=== PATIENT | male | born 2000 ===

== ENCOUNTER 2025-02-12 00:15 | Emergency (ER) | payer MEDICAID, OTHER, SELFPAY ==
--- NOTE | ~2025-02-12 | XR_ITS ---
CLINICAL HISTORY: dyspnea on exertion 2 view chest x-ray Comparison: None provided Findings: The lungs are clear. Heart size is normal. No acute fracture. IMPRESSION: 1. No acute findings. This document has been electronically signed by: Elo Mendiola MD on 02/12/2025 01:46:25
--- NOTE | ~2025-02-12 | XR_ITS ---
CLINICAL HISTORY: low mid back pain 3 views lumbar spine Comparison: None provided Findings: This examination is mildly limited by bowel-gas. No lumbar spondylolisthesis identified. No acute fractures or dislocation. No significant degenerative endplate changes are visualized at the lumbar spine. IMPRESSION: 1. No acute fracture or dislocation injury identified at the lumbar spine. This document has been electronically signed by: Frandy Zelaya MD on 02/12/2025 03:08:46
[2025-02-12 00:19] VITALS: BP 126/84; PULSE 69; RESP 18; TEMP 36.6; O2SAT 100; BMI 21.6
--- NOTE | 2025-02-12 00:22 | ECG_ITS ---
Test Reason : DYSPNEA Blood Pressure : */* mmHG Vent. Rate : 68 BPM Atrial Rate : 68 BPM P-R Int : 162 ms QRS Dur : 98 ms QT Int : 422 ms P-R-T Axes : 56 72 37 degrees QTcB Int : 448 ms Normal sinus rhythm Incomplete right bundle branch block Borderline ECG No previous ECGs available Referred By: Generic ED Physician Electronically Signed By: Fermin Kendrick
[2025-02-12 00:35] VITALS: BP 141/88; PULSE 63; RESP 22; TEMP 36.9; O2SAT 100
[2025-02-12 00:36] LABS: MANUAL DIFF FLAG NO
[2025-02-12 00:37] LABS: Hematocrit 40.8 % (42.0-52.0); Hemoglobin 14.0 g/dl (14.0-18.0); Imm Gran Abs Auto 0.02 X10*3/uL (0.00-0.03); Imm Gran Pct Auto 0.3 % (0.0-0.4); Lymphocytes Absolute Auto 3.1 X10*3/uL (1.2-4.9); Mean Corpuscular HGB Conc 34.3 g/dl (31.0-36.0); Mean Corpuscular Hemoglobin 29.9 pg (27.0-33.0); Mean Corpuscular Volume 87.2 fL (80.0-98.0); NRBC Abs Auto 0.000 X10*3/uL (0.0-0.012); NRBC Pct Auto 0.0 /100WBC (0.0-0.2); Platelet Count 268 X10*3/uL (160-400); Red Blood Count 4.68 X10*6/uL (4.60-5.80); White Blood Count 7.1 X10*3/uL (4.8-10.8)
[2025-02-12 00:56] LABS: Alanine Aminotransferase 24 U/L (0-40); Albumin Level 4.8 g/dL (3.5-5.0); Alkaline Phosphatase 81 U/L (39-117); Anion Gap 12 (12-20); Aspartate Amino Transferase 26 U/L (5-37); Blood Urea Nitrogen 12 mg/dL (9-16); Calcium 9.3 mg/dL (8.4-10.2); Carbon Dioxide 25 mmol/L (22-29); Chloride 108 mmol/L (96-108); Creatinine Clr Calc Pharmacy 98.2; Estimated Glomerular Filt Rate > 60; Potassium 3.5 mmol/L (3.3-5.1); Sodium 141 mmol/L (135-145); Total Protein 7.9 g/dL (6.5-8.0)
--- NOTE | 2025-02-12 00:57 | PC.NURSE ---
Pt with radiology Plan of care ongoing.
--- NOTE | 2025-02-12 01:18 | ED_ITS ---
HPI - General Adult General Chief complaint: Dyspnea Stated complaint: cant breath Time Seen by Provider: 02/12/25 00:34 History of Present Illness ED Provider: Ezio CLARKE narrative: The patient is a 25-year-old male who denies any significant past medical history. He is a nonsmoker. He is on no medications. He is Ethiopian-speaking only. He was interviewed with a Ethiopian project management specialist. The patient came to the emergency room because he feels very short of breath. He says that he feels that he can not take a deep breath. He says that if he tries to take a deep breath he feels discomfort in his back that stops him from taking a deep breath and he therefore feel short of breath. He has not had any significant coughing. No fever, sweats, chills. He does not have a history of asthma. He denies having had any injury. He denies any pain or swelling in his legs. He denies any abdominal pain, nausea, vomiting. He denies any sore throat pain in his neck. 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 When I 1st asked him if he thought he might have hurt his back doing heavy lifting he said no but later he admitted that that might have happened. Related Data Previous Rx's ?Medication ?Instructions ?Recorded acetaminophen 500 mg capsule 1,000 mg (2 x 500 mg) PO Q8H PRN 02/12/25 fever or pain #14 caps cyclobenzaprine 10 mg tablet 10 mg PO TID PRN muscle s pasm #14 02/12/25 tabs ibuprofen 400 mg tablet 400 mg PO Q6H PRN pain #14 t abs 02/12/25 Allergies Allergy/AdvReac Type Severity Reaction Status Date / Time No Known Allergies Allergy Verified 02/12/25 00:21 Review of Systems 2 Review of Systems: Yes all other systems are reviewed and are negative [facility] Social History Social History Smoked in Last 30 Days: No Use of substances other than those prescribed or required for medical reasons: No Advance Directives: No Advance Directives Information Provided: No Do you have a plan to hurt others: No Plan Physical Exam ED Vital Signs: Vital Signs - 24 hr 02/12/25 00:19 02/12/25 00:35 02/12/25 03:20 Temperature 97.8 F 98.4 F 98.0 F Pulse Rate 69 63 56 Respiratory Rate 18 22 H 18 Blood Pressure 126/84 141/88 H 121/71 Pulse Oximetry 100 100 98 Oxygen Delivery Method Room Air Room Air Room Air 02/12/25 03:20 Temperature 98.0 F Pulse Rate 56 Respiratory Rate 18 Blood Pressure 121/71 Pulse Oximetry 98 Oxygen Delivery Method Room Air BMI result Body Mass Index 21.6 Const Other: The patient is a 25-year-old male who looks as though he is ordinarily healthy but he seems uncomfortable and is sitting up very straight as if he is having difficulty breathing. HENMT Other: Posterior pharynx is unremarkable. Mucous membranes are moist. No trismus. Face is unremarkable. Eyes Other: Pupils are round equal, conjunctivae are clear, extraocular movements intact Neck Other: No neck swelling, no neck tenderness, good range of motion of the neck, no adenopathy. Chest Other: No subcutaneous emphysema. No chest wall tenderness. Resp Other: The patient seems to be taking very shallow breaths fairly rapidly. I do not hear scar wheezing or crackles but the breaths that he seems to be taking are so small it is hard to evaluate them.. Cardio Rate: regular rate Rhythm: regular rhythm Heart sounds: S1 normal heart sound present and S2 normal heart sound present GI Other: Abdomen is soft and nontender Back/Spine/Pelvis Other: There is a very subtle area of slight discoloration to the skin in the middle of the back at the thoracolumbar junction region. There may be some tenderness in his area. Skin Other: There may be a patch of some very faint erythema in the mid back at a pproximately the thoracolumbar junction. This is a equivocal finding however. Neuro Other: The patient is awake and alert. He seems to have a very anxious demeanor and seems uncomfortable and tachypneic. Otherwise his mental status seems clear. Nerves are intact. He moves his extremities normally and is gait is steady. Extrem Other: There is no calf swelling or tenderness. No asymmetry. No peripheral edema. Medications Administered Discontinued Medications Generic Name Dose Route Start Last Admin Trade Name Freq PRN Reason Stop Dose Admin Cyclobenzaprine HCl 10 mg 02/12/25 02:49 02/12/25 02:59 Cyclobenzaprine Hcl 10 Mg Tablet PO 02/12/25 02:50 10 mg ONCE ONE Administration Acetaminophen 1,000 mg in 100 mls @ 400 mls/hr 02/12/25 01:40 02/12/25 02:05 Ofirmev IV 02/12/25 01:54 Infused ONCE ONE Infusion Ketorolac Tromethamine 15 mg 02/12/25 01:10 02/12/25 01:24 Ketorolac Tromethamine 15 Mg/Ml Vial IVPUSH 02/12/25 01:11 15 mg ONCE ONE Administration Medical Decision Making Medical Decision Making [facility] Narrative: The patient is an ordinarily healthy 25-year-old who presented to the emergency room with mid lower back pain which was making breathing painful. Therefore the patient at 1st looked short of breath. Breath sounds were hard to evaluate because the patient was only taking extremely small breaths. Chest x-ray however did not show any abnormality and the patient was not really wheezing to suggest an asthma problem. Ultimately this seemed more like a pain problem. The patient was given IV ketorolac and acetaminophen. He then felt much better. Breath sounds were much easier to evaluate. He was able to take a deep breath. His lungs are clear. We also ran a D-dimer which was normal. The patient has some tenderness in the middle portion of his back. I do not see any spinal fractures on the lateral of his chest x-ray or on a lumbar spine series. There was also no sign of infection on his workup. He has a normal white count. No left shift on his white count. CRP undetectable. Serology was negative for influenza, RSV, COVID, and strep. The patient seemed to respond well to treatment of pain. He will be discharged with a prescriptions for acetaminophen, ibuprofen, and cyclobenzaprine. He will be advised to avoid work until he is feeling better. He was given a work note. He was given contact information for local primary care offices and should try to get a regular doctor. He should return to the emergency room if worse. Lab Data 02/12/25 00:32 02/12/25 00:32 Labs: Lab Results 02/12/25 02/12/25 02/12/25 Range/Units 00:32 01:19 01:30 WBC 7.1 (4.8-10.8) X10*3/uL RBC 4.68 (4.60-5.80) X10*6/uL Hgb 14.0 (14.0-18.0) g/dl Hct 40.8 L (42.0-52.0) % MCV 87.2 (80.0-98.0) fL MCH 29.9 (27.0-33.0) pg MCHC 34.3 (31.0-36.0) g/dl RDW 12.4 (11.0-16.0) % Plt Count 268 (160-400) X10*3/uL MPV 9.0 L (9.4-12.4) fL Immature Gran % (Auto) 0.3 (0.0-0.4) % Neut % (Auto) 43.1 L (45-73) % Lymph % (Auto) 43.2 H (20-40) % [place] % (Auto) 6.5 (2-11) % Eos % (Auto) 6.2 H (0-4) % Baso % (Auto) 0.7 (0-2) % Lymph # (Auto) 3.1 (1.2-4.9) X10*3/uL [place] # (Auto) 0.5 (0.1-1.2) X10*3/uL Eos # (Auto) 0.4 (0.0-0.4) X10*3/uL Baso # (Auto) 0.1 (0.0-0.2) X10*3/uL Abs Immat Gran (auto) 0.02 (0.00-0.03) X10*3/uL Absolute Neuts (auto) 3.0 (2.0-8.3) x10*3/uL Absolute Nucleated RBC 0.000 (0.0-0.012) X10*3/uL Nucleated RBC % (auto) 0.0 (0.0-0.2) /100WBC D-Dimer High Sensitivty < 150 NG/ML Sodium 141 (135-145) mmol/L Potassium 3.5 (3.3-5.1) mmol/L Chloride 108 (96-108) mmol/L Carbon Dioxide 25 (22-29) mmol/L Anion Gap 12 (12-20) BUN 12 (9-16) mg/dL Creatinine 0.95 (0.5-1.4) mg/dL Estim Creat Clear Calc 98.2 Estimated GFR > 60 Random Glucose 113 (60-115) mg/dL Calcium 9.3 (8.4-10.2) mg/dL Total Bilirubin 0.4 (0.0-1.0) mg/dL AST 26 (5-37) U/L ALT 24 (0-40) U/L Alkaline Phosphatase 81 (39-117) U/L C-Reactive Protein < 0.10 (< or = 0.50) mg/dL Total Protein 7.9 (6.5-8.0) g/dL Albumin 4.8 (3.5-5.0) g/dL Influenza Type A (PCR) NEGATIVE (Negative) Influenza Type B (PCR) NEGATIVE (Negative) RSV RNA Qual (PCR) NEGATIVE (Negative) SARS-CoV-2 RNA (RT-PCR) NEGATIVE (Negative) S. pyogenes GrpA ANTONI Negative (Negative) Discharge Plan Discharge Clinical Impression: Musculoskeletal back pain, Shortness of breath Patient Disposition: Home, Self-Care Additional Instructions: I think you are having pain in your back from some kind of a muscle strain. This has made breathing painful. Perhaps you strained some muscles in your back when you were lifting heavy things at work. I would recommend avoiding work for several days to allow your back to recover. In the meantime you may use acetaminophen 3 times a day as prescribed. In addition you may use ibuprofen every 6 hours as needed as well. There is also a prescription for the muscle relaxant medication cyclobenzaprine. This medication can be used in addition to the other 2 medications. This medication can make you sleepy. Do not drive or work or operate heavy equipment using this medication. Please work on getting a primary care doctor. You has been provided with some contact information for some local primary care offices. If at any point you feel significantly worse please return to the emergency room for additional evaluation. Prescriptions: New cyclobenzaprine 10 mg tablet 10 mg PO TID PRN (Reason: muscle spasm) Qty: 14 0RF ibuprofen 400 mg tablet 400 mg PO Q6H PRN (Reason: pain) Qty: 14 0RF acetaminophen 500 mg capsule 1,000 mg PO Q8H PRN (Reason: fever or pain) Qty: 14 0RF Referrals: [facility] [Provider Group] [facility] [place] [facility], [place] [Provider Group, Internal Medicine] [facility] [place] [facility], [place] [Provider Group, Internal Medicine] [facility] [place] Primary Care, [facility] [Provider Group, Primary Care] Sheron Jim MD [Physician, Internal Medicine] Stand Alone Forms: Work/School Release Interventions: ED Discharge Assessment Last Done: 02/12/25 03:20 Discharge Date/Time: 02/12/25 03:29 Print Language: Ethiopian
--- NOTE | 2025-02-12 01:31 | PC.NURSE ---
IV access completed Pt reporting 01/14 back pain Pt medicated per mar strep and covid/rsv/covid collected Ddimer collected
[2025-02-12 01:36] LABS: D Dimer High Sensitivity < 150 NG/ML
[2025-02-12 01:42] LABS: IDNOW Serial# 58CA691E; Strep A Nucleic Acid Negative (Negative)
--- NOTE | 2025-02-12 01:50 | PC.NURSE ---
Pt medicated per mar Provider with pt Plan of care ongoing.
[2025-02-12 02:12] LABS: Resp Syncy Virus RNA Qual PCR NEGATIVE (Negative); SARS COV2 PCR INHOUSE NEGATIVE (Negative)
--- NOTE | 2025-02-12 02:27 | PC.NURSE ---
Pt reports 6/10 pain pts family at bedside Plan of care ongoing.
--- NOTE | 2025-02-12 03:01 | PC.NURSE ---
Pt medicated per [facility] Plan of care ongoing.
[2025-02-12 03:20] VITALS: BP 121/71; PULSE 56; RESP 18; TEMP 36.7; O2SAT 98
== END 2025-02-12 03:29 | disposition home or self-care (01) ==
PROVIDERS: Emergency Provider Emergency Medicine
DX: M54.9 Dorsalgia, unspecified (principal); R06.02 Shortness of breath; X50.0XXA Overexertion from strenuous movement or load, initial encounter; Y99.0 Civilian activity done for income or pay; Y93.89 Activity, other specified; Y92.69 Other specified industrial and construction area as the place of occurrence of the external cause
CPT/HCPCS: 36415; 71046; 72100; 80053; 85025; 85379; 86140; 87637; 87651; 93005; 96365; 96375; 99284; 99285; J0131; J1885

== ENCOUNTER → 2025-02-12 00:22 | Outpatient (BNV) | payer MEDICAID, SELFPAY | PROVIDERS: Emergency Provider Emergency Medicine; Visit Provider Internal Medicine Cardiovascular Disease | DX: I45.10 Unspecified right bundle-branch block (principal) | CPT/HCPCS: 93010 ==

== ENCOUNTER → 2025-02-12 00:40 | Outpatient (BNV) | payer MEDICAID, SELFPAY | PROVIDERS: Emergency Provider Emergency Medicine; Visit Provider Radiology Diagnostic Radiology | DX: M54.59 Other low back pain (principal); R06.09 Other forms of dyspnea | CPT/HCPCS: 71046; 72100 ==